=== PATIENT | female | born 1960 | race Caucasian/White ===

== ENCOUNTER 2021-03-10 11:48 | Emergency (ER) | payer OTHER ==
[2021-03-10 13:04] LABS: BASOPHIL 0.8 % (0-2); EOSINOPHIL 2.1 % (0-5); HCT 44.2 % (37.0-47.0); HGB 13.5 g/dl (12.5-16.0); MCH 24.8 pg (25.0-31.0); MCHC 30.5 g/dL (32.0-36.0); MCV 81.3 fL (78.0-100.0); MONOCYTE 6.4 % (0-12); NEUTROPHIL 65.4 % (41-80); NRBC 0; PLT 342 K/uL (150-400); RBC 5.44 M/uL (4.20-5.40)
[2021-03-10 13:14] LABS: INR 0.98 (0.9-1.2); PROTHROMBIN TIME 12.4 SECONDS (11.8-13.4)
[2021-03-10 14:43] LABS: ALBUMIN 4.5 g/dL (3.4-5.0); BILIRUBIN - TOTAL 0.5 mg/dL (0.2-1.0); CREATININE 0.81 mg/dL (0.51-0.95); GLOBULIN (CALCULATION) 3.4 g/dL; POTASSIUM 4.2 mmol/L (3.5-5.1); TOTAL PROTEIN 7.9 g/dL (6.4-8.2)
[2021-03-10] MEDS ORDERED: DICLOFENAC SODI50 MG PO (18:05)
[2021-03-10] MEDS ORDERED: ZOFRAN4 M1 PO (18:05)
== END 2021-03-10 18:17 | disposition home or self-care (01) ==
LOC: FER 11:48
PROVIDERS: Physician Assistant
DX: G44.89 Other headache syndrome (principal); R11.0 Nausea
CPT/HCPCS: 36415; 71045; 80053; 84484; 85025; 85610; 93005; J1200; J2765; J7040; Q9967